=== PATIENT | female | born 1965 | race Caucasian/White ===

== ENCOUNTER 2019-04-03 06:00 | Day surgery (SDC) | payer BC, OTHER ==
[2019-04-01 11:46] VITALS: BMI 20.2
[2019-04-03] MEDS ORDERED: ePHEDrine SULFATE 50 MG/1 ML AMPULE ONE (07:05)
[2019-04-03] MEDS ORDERED: SUCCINYLCHOLINE CHLORIDE 200 MG/10 ML SYRINGE ONE (07:05)
[2019-04-03] MEDS ORDERED: MIDAZOLAM HCL 2 MG/2 ML SINGLE DOSE VIAL ONE ×2 (07:05→07:11)
[2019-04-03] MEDS ORDERED: PROPOFOL 20 ML ONE ×2 (07:05→08:20)
[2019-04-03] MEDS ORDERED: ceFAZolin SODIUM 1 GM VIAL ONE (07:06)
[2019-04-03] MEDS ORDERED: ONDANSETRON 4 MG/2 ML VIAL ONE (07:06)
[2019-04-03] MEDS ORDERED: DEXAMETHASONE SOD PHOSPHATE 4 MG/1 ML VIAL ONE (07:06)
[2019-04-03] MEDS ORDERED: LIDOCAINE HCL/PF 2% SDV 5ML VIAL ONE (07:06)
[2019-04-03] MEDS ORDERED: ROPIVACAINE HCL 0.5% 30ML VIAL ONE ×2 (07:11→07:16)
[2019-04-03] MEDS ORDERED: BUPIVACAINE HCL 0.25% 125 MG/50 ML VIAL ONE (07:23)
[2019-04-03] MEDS ORDERED: LIDOCAINE HCL 2% (20ML MULTI-DOSE VIAL) NR ONE (07:23)
[2019-04-03] MEDS ORDERED: ceFAZolin SODIUM 1 GM VIAL IVPB ONE (07:38)
[2019-04-03] MEDS ORDERED: ACETAMINOPHEN 325 MG TABLET (FP) PO PRN (08:29)
[2019-04-03] MEDS ORDERED: oxyCODONE HCL 5 MG TABLET PO PRN ×2 (08:29)
[2019-04-03] MEDS ORDERED: ONDANSETRON 4 MG/2 ML VIAL IVPUSH PRN (08:29)
[2019-04-03] MEDS ORDERED: LACTATED RINGERS SOLUTION 1,000 ML IV SCH (08:30)
[2019-04-03 09:10] VITALS: TEMP 97.5
[2019-04-03 09:48] VITALS: BP 112/64
[2019-04-03 09:50] VITALS: PULSE 60
--- NOTE | 2019-04-04 13:37 | OP ---
DATE OF OPERATION: 04/03/2019 PREOPERATIVE DIAGNOSIS: Right comminuted displaced intra-articular distal radius fracture. POSTOPERATIVE DIAGNOSIS: Right comminuted displaced intra-articular distal radius fracture. OPERATIVE PROCEDURE: 1. Open reduction internal fixation of right comminuted intra-articular displaced distal radius fracture with internal fixation of 3 or more fragments. 2. Right brachioradialis tenotomy. SURGEON: Carlene Garcia MD FREIGHT HUSTLER: TANMAY Esquivel ANESTHESIA: Regional. COMPLICATIONS: None. ESTIMATED BLOOD LOSS: Minimal. INDICATION FOR PROCEDURE: The patient is a 54-year-old female with the above finding indicated for operative treatment. Risks, benefits, alternatives were discussed with the patient at length. Proper informed consent was obtained. DESCRIPTION OF PROCEDURE: After proper identification of patient and correct operative site, patient was brought to the operating room, placed supine on the table, bony prominences well padded. Sedation was given by the anesthesiologist along with regional anesthesia. Right upper extremity was prepped and draped in the usual sterile fashion. Well-padded tourniquet was placed with a sterile prep. Esmarch bandage to exsanguinate the right upper extremity. Tourniquet was inflated to 250 mmHg. A longitudinal incision was made over the flexor carpi radialis tendon. Incision was taken sharply through the skin with blunt and sharp dissection of subcutaneous tissues. Flexor carpi radialis tendon along with the contents of the carpal canal were bluntly and gently retracted in an ulnarward direction for the remainder of the procedure. Pronator quadratus was divided and elevated off the distal radius. Radial styloid fragment was freed by releasing the right subperiosteal tenotomy at the brachioradialis tendon. Reduction was then performed, and adequate reduction was achieved and secured with a distal radius Acumed Acu-Loc II plate and screws. This provided secure stable fixation of the fracture confirmed radiographically in multiple planes. Ulnar styloid fragment was again noted, and distal radial ulnar joint was stressed and found to be stable, so no further intervention was needed. Scapholunate interval was also stressed and found to be stable. Wound was irrigated and repaired in layers including pronator quadratus with 4-0 Vicryl and 4-0 Monocryl sutures. Steri-Strips and sterile dressings were applied. Patient was reversed from anesthesia and brought to the recovery room in stable condition. Splint was placed. Patient tolerated the procedure well. Adam Walter was integral throughout the procedure, and the procedure could not have performed without his skilled operative assistance. CARLENE GARCIA M.D. MERCEDES/[id number]
== END 2019-04-03 09:40 | disposition home or self-care (01) ==
LOC: FASU 06:00
PROVIDERS: ATTEND Orthopaedic Surgery Hand Surgery
PROC: 0LN50ZZ Release Right Lower Arm and Wrist Tendon, Open Approach (ICD-10-PCS; 2019-04-03)
PROC: 0PSH04Z Reposition Right Radius with Internal Fixation Device, Open Approach (ICD-10-PCS; principal; 2019-04-03 07:35)
DX: S52.501A Unspecified fracture of the lower end of right radius, initial encounter for closed fracture (principal); X58.XXXA Exposure to other specified factors, initial encounter; Y93.9 Activity, unspecified; Y92.9 Unspecified place or not applicable
CPT/HCPCS: 73110-TC-RT-FY